=== PATIENT | female | born 1995 | race Two or more races ===

== ENCOUNTER 2018-10-01 22:25 | Emergency (ER) | payer MEDICAID ==
[~2018-10-01] VITALS: Ht 162.6 cm; Wt 72.6 kg
[2018-10-01 23:05] VITALS: BP 121/92
[2018-10-01 23:36] LABS: Basophils # (auto) 0.1 uL; Eosinophils # (auto) 0.1 uL
[2018-10-01 23:40] LABS: Basophils % (auto) 0.8 % (0.0-2.0); Hematocrit 43.1 % (36.0-46.0); Hemoglobin 14.2 g/dL (12.2-16.2); Lymphocytes # (auto) 2.5 uL; Lymphocytes % (auto) 25.9 % (10.0-50.0); Mean Corpuscular Hgb Conc. 32.9 g/dL (32.0-36.0); Monocytes # (auto) 0.7 uL; Neutrophils # (auto) 6.3 uL; Neutrophils % (auto) 65.3 % (37.0-80.0); Nucleated Red Blood Cells % 0.1 %; Platelet Count (auto) 486 10^3/uL (140-450); Red Cell Distribution Width 13.7 % (11.8-14.3); White Blood Cell 9.6 10^3/uL (4.4-10.8)
[2018-10-01 23:55] LABS: Blood Urea Nitrogen 13 mg/dL (7-18); Calcium 8.9 mg/dL (8.5-10.1); Chloride 109 mmol/L (98-107); Potassium 3.5 mmol/L (3.5-5.1); Sodium 141 mmol/L (136-145)
[2018-10-01 23:58] LABS: INR 0.93 (0.9-1.15); Partial Thromboplastin Time 26.8 sec (23.78-33.04)
[2018-10-02] LABS: Alanine Aminotransferase 33 U/L (13-56); Albumin 3.6 g/dL (3.4-5.0); Anion Gap 8 (5-15); Aspartate Aminotransferase 23 U/L (15-37); BUN/Creatinine Ratio 15.9; Carbon Dioxide 24 mmol/L (21-32); GFR African American 111 mL/min; GFR Non-African American 92 mL/min; Glucose 153 mg/dL (74-106)
[2018-10-02 00:04] LABS: Alkaline Phosphatase 72 U/L (45-117); Bilirubin, Total 0.2 mg/dL (0.2-1.0); Total Protein 7.1 g/dL (6.4-8.2)
== END 2018-10-02 00:56 | disposition left against medical advice (07) ==
LOC: ER 22:28
DX: R07.9 Chest pain, unspecified (principal); R00.2 Palpitations; Z53.21 Procedure and treatment not carried out due to patient leaving prior to being seen by health care provider
CPT/HCPCS: 36415; 80053; 83735; 84443; 84484; 85025; 85379; 85610; 85730; 93005

== ENCOUNTER 2018-10-16 18:01 | Emergency (ER) | payer MEDICAID ==
[~2018-10-16] VITALS: Ht 160 cm; Wt 77.1 kg
[2018-10-16 18:13] VITALS: BP 121/79
[2018-10-16 18:59] LABS: Basophils # (auto) 0.1 uL; Eosinophils # (auto) 0.2 uL; Lymphocytes # (auto) 2.5 uL; Monocytes # (auto) 0.5 uL
[2018-10-16 19:01] LABS: Basophils % (auto) 0.8 % (0.0-2.0); Eosinophils % (auto) 2.1 % (0.0-7.0); Hematocrit 43.5 % (36.0-46.0); Hemoglobin 14.3 g/dL (12.2-16.2); Lymphocytes % (auto) 34.2 % (10.0-50.0); Mean Corpuscular Hemoglobin 28.8 pg (28.0-32.0); Mean Corpuscular Hgb Conc. 32.9 g/dL (32.0-36.0); Mean Corpuscular Volume 87.7 fL (80.0-100.0); Monocytes % (auto) 7.1 % (0.0-12.0); Neutrophils # (auto) 4.1 uL; Neutrophils % (auto) 55.8 % (37.0-80.0); Nucleated Red Blood Cells % 0.1 %; Platelet Count (auto) 474 10^3/uL (140-450); Red Blood Cells 4.96 10^6/uL (4.0-5.20); Red Cell Distribution Width 13.5 % (11.8-14.3); White Blood Cell 7.4 10^3/uL (4.4-10.8)
[2018-10-16 19:09] LABS: Alanine Aminotransferase 30 U/L (13-56); Albumin 3.8 g/dL (3.4-5.0); Anion Gap 7 (5-15); Aspartate Aminotransferase 27 U/L (15-37); BUN/Creatinine Ratio 13.4; Blood Urea Nitrogen 9 mg/dL (7-18); Carbon Dioxide 27 mmol/L (21-32); Chloride 107 mmol/L (98-107); GFR African American 140 mL/min; GFR Non-African American 116 mL/min; Glucose 97 mg/dL (74-106); Potassium 3.4 mmol/L (3.5-5.1); Sodium 141 mmol/L (136-145)
[2018-10-16 19:12] LABS: Urine WBC None Seen /hpf (0 - 5)
[2018-10-16 19:27] LABS: Alkaline Phosphatase 70 U/L (45-117); Bilirubin, Total 0.3 mg/dL (0.2-1.0); Total Protein 7.3 g/dL (6.4-8.2)
[2018-10-16 19:33] LABS: Urine Bacteria NONE SEEN /hpf (None Seen); Urine Blood TRACE /uL (Negative); Urine Pregnacy Test Negative (Negative); Urine Specific Gravity 1.005 (1.001-1.035)
[2018-10-16 19:44] LABS: Amphetamine Screen, Urine NEGATIVE (NEGATIVE); Barbiturate Scree,Urine NEGATIVE (NEGATIVE); Benzodiazephine Screen, Urine NEGATIVE (NEGATIVE); Cannabinoid Screen, Urine NEGATIVE (NEGATIVE); Cocaine Screen, Urine NEGATIVE (NEGATIVE); Opiate Scree,Urine NEGATIVE (NEGATIVE); Phencyclidine Screen, Urine NEGATIVE (NEGATIVE)
== END 2018-10-16 23:36 | disposition left against medical advice (07) ==
LOC: ER 18:04
DX: R06.02 Shortness of breath (principal); R00.2 Palpitations; Z53.21 Procedure and treatment not carried out due to patient leaving prior to being seen by health care provider
CPT/HCPCS: 36415; 71045; 80053; 80307; 81001; 81025; 84484; 85025; 93005

== ENCOUNTER 2021-06-30 14:08 | Emergency (ER) | payer MEDICAID ==
[~2021-06-30] VITALS: Ht 162.6 cm; Wt 77.1 kg
[2021-06-30 14:12] VITALS: BP 138/81
[2021-06-30] MEDS ORDERED: PRED20TA2 PO (18:40)
[2021-06-30] MEDS ORDERED: AZIT1POW12 PO (18:40)
[2021-06-30] MEDS ORDERED: ALBU108A5 IN (18:40)
== END 2021-06-30 20:18 | disposition left against medical advice (07) ==
LOC: ER 14:08
DX: J20.9 Acute bronchitis, unspecified (principal)
CPT/HCPCS: 93005; 99283; J7040

== ENCOUNTER → 2021-11-23 | Outpatient (CLI) | payer MEDICAID ==
[~2021-11-23] VITALS: Ht 162.6 cm; Wt 77.1 kg
[~2021-11-23] MED LIST: ALBU108A5 IN; AZIT1POW12 PO; PRED20TA2 PO
== END | disposition home or self-care (01) ==
LOC: Rad HDHVI 13:38
PROVIDERS: ATTEND Internal Medicine
DX: R00.2 Palpitations (principal); R07.9 Chest pain, unspecified; R06.02 Shortness of breath; R42 Dizziness and giddiness; F43.9 Reaction to severe stress, unspecified; F41.9 Anxiety disorder, unspecified
CPT/HCPCS: 93017

== ENCOUNTER → 2021-11-30 | Outpatient (CLI) | payer MEDICAID | END | disposition home or self-care (01) | LOC: Rad HDHVI 13:05 | PROVIDERS: ATTEND Internal Medicine | DX: J98.4 Other disorders of lung (principal); I37.1 Nonrheumatic pulmonary valve insufficiency | CPT/HCPCS: 93306 ==